=== PATIENT | female | born 1980 | race Caucasian/White ===

== ENCOUNTER 2019-12-12 22:02 | Observation (INO) | payer OTHER, SELFPAY ==
[2019-12-12 22:04] VITALS: BP 127/80; PULSE 91; RESP 18; TEMP 36.8; O2SAT 97; BMI 29.2
[2019-12-12 22:10] VITALS: BP 132/78; PULSE 74; RESP 16; O2SAT 97
--- NOTE | 2019-12-12 22:24 | ED_ITS ---
HPI - Abdominal Pain General: Chief Complaint: Abdominal Pain Stated Complaint: abd pain Time Seen by Provider: 12/12/19 22:13 History of Present Illness: MD elicited complaint: abdominal pain Pertinent past history: none Onset (ago): hour(s) Pain Consistency: constant Location: Periumbilical and RLQ Quality: aching and sharp Radiation: R flank Exacerbating factors: movement Relieving factors: nothing Associated Symptoms: Reports nausea; Denies diarrhea, dysuria, fever(s), hematuria and vomiting Review of Systems Const: Denies: fever Eyes: Denies: change in vision or blurry vision ENMT: Denies: painful swallowing, nose bleeds, post nasal drip or facial/sinus pain Card: Denies: chest pain, palpitations or irregular heart rhythm Resp: Denies: shortness of breath, productive cough, non-productive cough or wheezing GI: Reports: nausea; Denies: vomiting or diarrhea : Denies: painful urination or blood in urine Musc: Denies: neck pain, back pain, redness or joint warmth Skin/Breast: Denies: rash, itching or redness Neuro: Denies: headache, dizziness, vertigo or confusion Psych: Denies: anxiety PFSH ED PFSH: Social History Smoking and tobacco status: never smoked Physical Exam Const: GENERAL APPEARANCE: well developed ORIENTATION/CONSCIOUSNESS: Yes oriented to person, Yes oriented to place and Yes oriented to time HENMT: COMMON NORMALS: normocephalic, external ears normal and external nose normal HEAD & SCALP: normocephalic FACE & SINUS: normal facial exam NOSE: external nose normal and no nasal discharge EXTERNAL EAR: Yes external ears normal MOUTH: tongue normal Eye: COMMON NORMALS: PERRL, EOMs intact bilaterally and conjunctivae normal EYELID: eyelids normal CONJUNCTIVA: Yes conjunctivae normal PUPIL: Yes PERRL Neck/C-Spine: COMMON NORMALS: full ROM GENERAL: No tracheal deviation Chest: COMMONS NORMALS: inspection of chest normal CHEST: No tenderness Resp: COMMON NORMALS: clear to auscultation bilaterally EFFORT & INSPECTION: No tachypneic, No respiratory distress, No retractions, No uses accessory muscles and No tracheal deviation AUSCULTATION: clear to auscultation bilaterally, no rhonchi, no wheezes and lung sounds not diminished Cardio: COMMON NORMALS: regular rate and regular rhythm RATE: regular rate RHYTHM: regular rhythm HEART SOUNDS: no murmurs PERIPHERAL PULSES: radial pulses present GI: COMMON NORMALS: soft to palpation INSPECTION: No abdominal distension AUSCULTATION: No hyperactive bowel sounds and No hypoactive bowel sounds PALPATION: Yes soft, Yes tender Details: RLQ, No guarding and No rigid PERCUSSION: no dullness to percussion and no tympanic to percussion : BLADDER/KIDNEY EXAM: Yes CVA tenderness on the right Back/Pelvis: GENERAL BACK: Yes CVA tenderness Neuro: SENSORIUM/ORIENTATION: Yes oriented to person, Yes oriented to place and Yes oriented to time Psych: COMMON NORMALS: mental status grossly normal Skin: COMMON NORMALS: no rashes or lesions noted GENERAL SKIN EXAM: no rashes or lesions noted Course Vital Signs: Vital signs: Vital Signs Temperature 98.2 F 12/12/19 22:04 Pulse Rate 76 12/12/19 23:10 Respiratory Rate 16 12/12/19 23:10 Blood Pressure 124/72 12/12/19 23:10 Pulse Oximetry 99 12/12/19 23:10 MDM - Abdominal Pain MDM Narrative: Medical decision making narrative: Right lower quadrant pain in a patient with a white blood cell count of 13.2. CT scan shows early appendicitis without perforation. Spoke with surgery. Zosyn here and on the floor. Pain control. Antiemetics. Fluids. Surgery will see her later this morning. Lab Data: Labs: Lab Results 12/12/19 12/12/19 12/12/19 Range/Units 22:15 22:20 22:20 WBC 13.2 H (4.0-10.0) 10^3/ uL RBC 4.98 (4.1-5.3) 10^6/u L Hgb 15.6 H (11.5-15.3) g/dL Hct 45.7 (37.0-47.0) % MCV 91.8 (81-99) fL MCH 31.3 (28.0-34.0) pg MCHC 34.1 (30.0-36.0) g/dL RDW 12.4 (12.1-15.1) % Plt Count 282 (130-400) 10^3/c mm MPV 9.5 (7.4-10.4) fL Neut % (Auto) 85.6 % Lymph % (Auto) 9.2 % [place] % (Auto) 4.5 % Eos % (Auto) 0.2 % Baso % (Auto) 0.2 % Neut # (Auto) 11.3 H (1.8-7.7) 10^3/u L Lymph # (Auto) 1.2 (0.8-4.8) 10^3/u L [place] # (Auto) 0.6 (0.2-0.9) 10^3/u L Eos # (Auto) 0.0 (0.0-0.8) 10^3/u L Baso # (Auto) 0.0 (0.0-0.1) 10^3/u L Nucleated RBC % (a uto) 0 % Nucleated RBCs # 0.0 /100WBC Sodium 136 (136-145) mmol/L Potassium 3.6 (3.5-5.1) mmol/L Chloride 97 L (98-107) mmol/L Carbon Dioxide 23 (22-29) mmol/L Anion Gap 19.6 H (5-19) BUN 9 (6-20) mg/dL Creatinine 0.8 (0.5-0.9) mg/dL GFR Calculation 79.0 L (90-130) mL/min Glucose 108 (65-115) mg/dL Calculated Osmolal ity 279 L (285-295) mOsm/k g Calcium 10.1 (8.5-10.5) mg/dL Total Bilirubin 1.4 H (0.15-1.2) mg/dL AST 18 (0-32) U/L ALT 11 (0-33) U/L Alkaline Phosphata se 79 (35-105) IU/L C-Reactive Protein 0.9 (0.0-4.9) mg/L Total Protein 8.4 (6.6-8.7) g/dL Albumin 4.7 (3.5-5.2) g/dL Globulin 3.7 (1.3-4.6) g/dL Lipase 25 (13-60) U/L HCG, Qual (Negative) Urine Color Yellow (Yellow) Urine Appearance Clear (CLEAR) Urine pH 5 (5-7) Ur Specific Gravit y 1.020 (1.005-1.030) Urine Protein Neg (Negative) Urine Glucose (UA) Norm (Normal) Urine Ketones Negative (Negative) Urine Blood Neg (Negative) Urine Nitrate Negative (Negative) Urine Bilirubin Neg (NEGATIVE) Urine Urobilinogen Norm (Negative) mg/dL Ur Leukocyte Margot ase Negative (Negative) 12/12/19 Range/Units 22:20 WBC (4.0-10.0) 10^3/ uL RBC (4.1-5.3) 10^6/u L Hgb (11.5-15.3) g/dL Hct (37.0-47.0) % MCV (81-99) fL MCH (28.0-34.0) pg MCHC (30.0-36.0) g/dL RDW (12.1-15.1) % Plt Count (130-400) 10^3/c mm MPV (7.4-10.4) fL Neut % (Auto) % Lymph % (Auto) % [place] % (Auto) % Eos % (Auto) % Baso % (Auto) % Neut # (Auto) (1.8-7.7) 10^3/u L Lymph # (Auto) (0.8-4.8) 10^3/u L [place] # (Auto) (0.2-0.9) 10^3/u L Eos # (Auto) (0.0-0.8) 10^3/u L Baso # (Auto) (0.0-0.1) 10^3/u L Nucleated RBC % (a uto) % Nucleated RBCs # /100WBC Sodium (136-145) mmol/L Potassium (3.5-5.1) mmol/L Chloride (98-107) mmol/L Carbon Dioxide (22-29) mmol/L Anion Gap (5-19) BUN (6-20) mg/dL Creatinine (0.5-0.9) mg/dL GFR Calculation (90-130) mL/min Glucose (65-115) mg/dL Calculated Osmolal ity (285-295) mOsm/k g Calcium (8.5-10.5) mg/dL Total Bilirubin (0.15-1.2) mg/dL AST (0-32) U/L ALT (0-33) U/L Alkaline Phosphata se (35-105) IU/L C-Reactive Protein (0.0-4.9) mg/L Total Protein (6.6-8.7) g/dL Albumin (3.5-5.2) g/dL Globulin (1.3-4.6) g/dL Lipase (13-60) U/L HCG, Qual Negative (Negative) Urine Color (Yellow) Urine Appearance (CLEAR) Urine pH (5-7) Ur Specific Gravit y (1.005-1.030) Urine Protein (Negative) Urine Glucose (UA) (Normal) Urine Ketones (Negative) Urine Blood (Negative) Urine Nitrate (Negative) Urine Bilirubin (NEGATIVE) Urine Urobilinogen (Negative) mg/dL Ur Leukocyte Margot ase (Negative) Discharge Plan Discharge Prescriptions: No Action No Known Home Medications RF: 0 Coding Level of Care Code 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
[2019-12-12 22:32] LABS: Basophils % 0.2 %; Eosinophils % 0.2 %; Hematocrit 45.7 % (37.0-47.0); Hemoglobin 15.6 g/dL (11.5-15.3); Lymphocytes # 1.2 10^3/uL (0.8-4.8); Lymphocytes % 9.2 %; Mean Corpuscular HGB Conc 34.1 g/dL (30.0-36.0); Mean Corpuscular Hemoglobin 31.3 pg (28.0-34.0); Mean Corpuscular Volume 91.8 fL (81-99); Mean Platelet Volume 9.5 fL (7.4-10.4); Monocytes # 0.6 10^3/uL (0.2-0.9); Monocytes % 4.5 %; Neutrophils # 11.3 10^3/uL (1.8-7.7); Neutrophils % 85.6 %; Nucleated Red Blood Cells % 0 %; Platelet Count 282 10^3/cmm (130-400); Red Blood Count 4.98 10^6/uL (4.1-5.3); Red Cell Distribution Width 12.4 % (12.1-15.1); White Blood Count 13.2 10^3/uL (4.0-10.0)
--- NOTE | 2019-12-12 22:46 | CTR_ITS ---
PROCEDURE INFORMATION: Exam: CT Abdomen And Pelvis With Contrast Exam date and time: 12/12/2019 10:50 PM Age: 39 years old Clinical indication: Abdominal pain; Localized; Right lower quadrant (rlq); Patient HX: C/O rlq pain w nausea TECHNIQUE: Imaging protocol: Computed tomography of the abdomen and pelvis with intravenous contrast. Total DLP: 927.13 mGy-cm Radiation optimization: All CT scans at this facility use at least one of these dose optimization techniques: automated exposure control; mA and/or kV adjustment per patient size (includes targeted exams where dose is matched to clinical indication); or iterative reconstruction. Contrast material: OMNI 300; Contrast volume: 95 ml; Contrast route: 20G; COMPARISON: MRI Pelvis w/wo [id number] 04/08/2018 7:31 AM FINDINGS: Lungs: The lung bases are clear. Liver: There is fatty infiltration of the liver. Gallbladder and bile ducts: No definite gallbladder abnormality by CT. No biliary tree dilation. Pancreas: Unremarkable. Spleen: Unremarkable. Adrenals: Unremarkable. Kidneys and ureters: Possible 6 mm cyst in the lower right kidney, too small to accurately characterize by CT. No hydronephrosis of either kidney. No visible ureteral calculus. Stomach and bowel: There are no CT findings to strongly suggest diverticulitis. Appendix: The proximal appendix appears unremarkable. Possible small calcified appendicolith in the mid appendix. The distal aspect of the appendix is fluid-filled and mildly prominent in size, measuring up to 8-9 mm in diameter. There appears to be some appendiceal wall thickening/enhancement. Suspect very mild inflammatory changes in the periappendiceal fat. While the findings are not as prominent as often seen, I think this may well represent evidence for mild/early acute appendicitis. Clinical correlation is still recommended in this case. Intraperitoneal space: No free air, ascites, or bowel distention. Vasculature: No evidence for abdominal aortic aneurysm. Lymph nodes: No retroperitoneal adenopathy. Bladder: Suspect diffuse urinary bladder wall thickening. Evaluation is somewhat limited, as the bladder is almost empty. While nonspecific, this could indicate evidence for cystitis. Please correlate clinically. Reproductive: The right ovary contains a 20 mm dominant follicle versus small cyst. Significance uncertain due to small size. Small amount of cul-de-sac fluid. Bones/joints: Moderate degenerative disc changes at L5-S1. Soft tissues: No significant acute finding. CT/CT abdomen pelvis w con* [id number] IMPRESSION: 1. Findings suspicious for acute appendicitis, see above details/discussion. 2. No free air or bowel distention. 3. Suspected urinary bladder wall thickening, see above. 4. The right ovary contains a 20 mm dominant follicle versus small cyst. Significance uncertain due to small size. Small amount of cul-de-sac fluid. 5. Other findings discussed above. Radiation Dose CTDIVOL = (mGy): DLP = 927.13 (mGy-cm)
[2019-12-12 22:50] LABS: Alanine Aminotransferase 11 U/L (0-33); Albumin Level 4.7 g/dL (3.5-5.2); Alkaline Phosphatase 79 IU/L (35-105); Anion Gap 19.6 (5-19); Aspartate Amino Transferase 18 U/L (0-32); Blood Urea Nitrogen 9 mg/dL (6-20); C Reactive Protein 0.9 mg/L (0.0-4.9); Calcium 10.1 mg/dL (8.5-10.5); Carbon Dioxide 23 mmol/L (22-29); Chloride 97 mmol/L (98-107); Globulin 3.7 g/dL (1.3-4.6); Glucose 108 mg/dL (65-115); Lipase 25 U/L (13-60); Osmolality Calculated 279 mOsm/kg (285-295); Potassium 3.6 mmol/L (3.5-5.1); Sodium 136 mmol/L (136-145); Total Bilirubin 1.4 mg/dL (0.15-1.2); Total Protein 8.4 g/dL (6.6-8.7)
[2019-12-12 22:52] LABS: HCG, Serum Qual Negative (Negative)
[2019-12-12 22:54] LABS: Add Urine Microscopic? NO
[2019-12-12 22:56] LABS: Urine Appearance Clear (CLEAR); Urine Color Yellow (Yellow); pH Urine 5 (5-7)
[2019-12-12 22:57] LABS: Bilirubin Urine Neg (NEGATIVE); Blood Urine Neg (Negative); Glucose Urine UA Norm (Normal); Ketones Urine Negative (Negative); Leukocyte Esterase Urine Negative (Negative); Nitrate Urine Negative (Negative); Protein Urine Neg (Negative); Urobilinogen Urine Norm (Negative)
[2019-12-12] MEDS: iohexol 300 mg/mL 100 mL Btl IV (23:01)
[2019-12-12 23:10] VITALS: BP 124/72; PULSE 76; RESP 16; O2SAT 99
[2019-12-13] VITALS (26 sets, daily range): BP systolic 112–136; BP diastolic 69–87; PULSE 60–85; RESP 11–21; TEMP 36.5–37.1; O2SAT 95–100
[2019-12-13] MEDS: piperacillin-tazobactam 3.375 GM in sodium chloride 0.9% (plus) 50 ML IV ×2 (00:18→08:06)
[2019-12-13] MEDS: HYDROmorphone 1 mg/mL INJ 1 mL IVP (00:18)
[2019-12-13] MEDS: ondansetron 2 mg/ML SDV 2 mL 4 MG IVP (00:18)
[2019-12-13] MEDS: lactated ringers 1,000 ML 125 ML IV (01:07)
[2019-12-13] MEDS: morphine 4 mg/mL SDV 1 mL IVP ×3 (03:22→10:14)
[2019-12-13 05:59] LABS: Basophils % 0.3 %; Eosinophils % 0.4 %; Hematocrit 43.3 % (37.0-47.0); Hemoglobin 14.5 g/dL (11.5-15.3); Lymphocytes # 2.3 10^3/uL (0.8-4.8); Lymphocytes % 21.1 %; Mean Corpuscular HGB Conc 33.5 g/dL (30.0-36.0); Mean Corpuscular Hemoglobin 30.7 pg (28.0-34.0); Mean Corpuscular Volume 91.7 fL (81-99); Mean Platelet Volume 9.8 fL (7.4-10.4); Monocytes # 0.7 10^3/uL (0.2-0.9); Monocytes % 6.7 %; Neutrophils # 7.6 10^3/uL (1.8-7.7); Neutrophils % 71.2 %; Nucleated Red Blood Cells % 0 %; Platelet Count 245 10^3/cmm (130-400); Red Blood Count 4.72 10^6/uL (4.1-5.3); Red Cell Distribution Width 12.4 % (12.1-15.1); White Blood Count 10.6 10^3/uL (4.0-10.0)
[2019-12-13 06:17] LABS: Alanine Aminotransferase 10 U/L (0-33); Albumin Level 4.2 g/dL (3.5-5.2); Alkaline Phosphatase 74 IU/L (35-105); Anion Gap 15.8 (5-19); Aspartate Amino Transferase 15 U/L (0-32); Blood Urea Nitrogen 9 mg/dL (6-20); Calcium 9.4 mg/dL (8.5-10.5); Carbon Dioxide 26 mmol/L (22-29); Chloride 100 mmol/L (98-107); Glucose 101 mg/dL (65-115); Osmolality Calculated 282 mOsm/kg (285-295); Potassium 3.8 mmol/L (3.5-5.1); Sodium 138 mmol/L (136-145); Total Bilirubin 1.9 mg/dL (0.15-1.2); Total Protein 7.2 g/dL (6.6-8.7)
[2019-12-13] MEDS: sodium chloride 0.9% 1,000 ML 30 ML IV (07:43)
--- NOTE | 2019-12-13 07:44 | P.HP_ITS ---
Providers/Chief Complaint Admitting Physician: Bienvenido Tejeda MD Primary Care Provider: Raquel Huang MD Chief Complaint: abd pain History of Present Illness Willi Tinajero is a 39 year old female who woke up yesterday morning with complaints of abdominal pain mainly in the right lower quadrant and it progressively worsened during the course of the day. She had some nausea but no vomiting and therefore she presented to the ER. Patient states that she had 4 bowel movements yesterday and usually does not have any constipation. No fevers or chills. CT scan in the ER showed possible early appendicitis and her white count was 13. Review of Systems General: Reports: 10 or more systems reviewed and unremarkable except in HPI and below Medications/Allergies Home Medications Medication Instructions Recorded Confirmed Last Taken Type No Known Home Medications 12/12/19 12/12/19 Unknown History Allergies Allergy/AdvReac Type Severity Reaction Status Date / Time No Known Allergies Allergy Verified 12/12/19 22:09 PFSH Acute PFSH: Surgical History (Updated 12/13/19 @ 07:45 by Bienvenido Tejeda MD) H/O tubal ligation Social History Smoking and tobacco status: never smoked Vitals/I&O/Wt Last Vital Signs Temp 98.4 F 12/13/19 04:00 Pulse 81 12/13/19 04:00 Resp 14 12/13/19 05:43 BP 112/69 12/13/19 04:00 Pulse Ox 99 12/13/19 04:00 12/12/19 12/13/19 12/13/19 22:59 06:59 14:59 Intake Total 0 / 0 Balance 0 / 0 Weight last 48 hrs Weight 170 lb Physical Exam Narrative: EXAM NARRATIVE: HEENT: Normocephalic Eye: Sclera /conjunctiva normal Respiratory and chest: Bilateral clear breath sounds on auscultation Cardiovascular: Normal S1 and S2 heart sounds Abdomen: Soft to palpation, tender in the right lower quadrant Neurological: Oriented to place person and time Skin: Intact, no lesions appreciated on gross exam Data : 12/13/19 05:15 12/13/19 05:15 A&P Assessment and plan (1) Acute appendicitis: 39-year-old female with right lower quadrant pain nausea, leukocytosis and CT scan findings suggestive of early appendicitis Plan for laparoscopic possible open appendectomy Procedure, risks, benefits and alternatives have been discussed with the patient who wishes to proceed with surgery. 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
--- NOTE | 2019-12-13 07:50 | ANES.PREANE2 ---
Pre-Anesthetic Assessment Pre-Anesthetic Assessment: Height/Weight: Height 1.63 m Weight 77.111 kg Temp Pulse Resp BP Pulse Ox 98.4 F 81 14 112/69 99 12/13/19 04:00 12/13/19 04:00 12/13/19 05:43 12/13/19 04:00 12/13/19 04:00 Preop Diagnosis: aCute appendicitis Proposed Procedure: Operation Date: 12/13/19 08:20 Proposed Procedures p Laparoscopic Appendectomy Possible Open(Not Applicable) - Bienvenido Tejeda MD Familial anesthetic complications: No hx Was Beta Susana taken within 24 hours: N/A Last intake: Intake NPO since 1130 yesterday morning Last Solid Date 12/12/19 Social: Social History: No alcohol and No tobacco Exam: Pre-Anes Outpt Exam: alert, oriented x 3, clear to auscultation bilaterally and regular rate & rhythm Airway: Cervical ROM: WNL MP: 2 Dentition: Full Pulmonary: Pulmonary: None reported CV/HEM: CV/HEM: None reported : : None reported Hepatic: Hepatic: None reported GI: GI: None reported Metabolic: Metabolic: None reported Musc/skel: Musc/skel: None reported Neuropsych: Neuropsych: None reported Anesthetic Plan: ASA status: 1E Anesthesia: General Risk of > 500 ml blood loss (7ml/kg in children): No Meds/Allergies Current Medications: Current Medications Generic Name Dose Route Start Last Admin Trade Name Freq PRN Reason Stop Dose Admin Lactated Ringer's 1,000 mls @ 125 m ls/hr 12/13/19 00:40 12/13/19 01:07 Lactated Ringers IV 125 mls/hr .Q8H JACEY Administration Sodium Chloride 1,000 mls @ 30 ml s/hr 12/13/19 07:45 12/13/19 07:43 Sodium Chloride 0.9% IV 12/14/19 07:44 30 mls/hr .Q24H JACEY Administration Morphine Sulfate 4 mg 12/13/19 00:40 12/13/19 03:22 Morphine IVP 4 mg Q4H PRN Administration SEVERE PAIN PFSH Anesthesia PFSH: Surgical History (Updated 12/13/19 @ 07:45 by Bienvenido Tejeda MD) H/O tubal ligation Social History Smoking and tobacco status: never smoked Data Anesthesia CBC & Chem 7: 12/13/19 05:15 12/13/19 05:15 Other Labs: Laboratory Results - last 48 hr 12/12/19 12/12/19 12/12/19 22:15 22:20 22:20 WBC 13.2 H RBC 4.98 Hgb 15.6 H Hct 45.7 MCV 91.8 MCH 31.3 MCHC 34.1 RDW 12.4 Plt Count 282 MPV 9.5 Neut % (Auto) 85.6 Lymph % (Auto) 9.2 [place] % (Auto) 4.5 Eos % (Auto) 0.2 Baso % (Auto) 0.2 Neut # (Auto) 11.3 H Lymph # (Auto) 1.2 [place] # (Auto) 0.6 Eos # (Auto) 0.0 Baso # (Auto) 0.0 Nucleated RBC % (auto) 0 Nucleated RBCs # 0.0 Sodium 136 Potassium 3.6 Chloride 97 L Carbon Dioxide 23 Anion Gap 19.6 H BUN 9 Creatinine 0.8 GFR Calculation 79.0 L Glucose 108 Calculated Osmolality 279 L Calcium 10.1 Total Bilirubin 1.4 H AST 18 ALT 11 Alkaline Phosphatase 79 C-Reactive Protein 0.9 Total Protein 8.4 Albumin 4.7 Globulin 3.7 Lipase 25 HCG, Qual Urine Color Yellow Urine Appearance Clear Urine pH 5 Ur Specific [place] 1.020 Urine Protein Neg Urine Glucose (UA) Norm Urine Ketones Negative Urine Blood Neg Urine Nitrate Negative Urine Bilirubin Neg Urine Urobilinogen Norm Ur Leukocyte Esterase Negative 12/12/19 12/13/19 12/13/19 22:20 05:15 05:15 WBC 10.6 H RBC 4.72 Hgb 14.5 Hct 43.3 MCV 91.7 MCH 30.7 MCHC 33.5 RDW 12.4 Plt Count 245 MPV 9.8 Neut % (Auto) 71.2 Lymph % (Auto) 21.1 [place] % (Auto) 6.7 Eos % (Auto) 0.4 Baso % (Auto) 0.3 Neut # (Auto) 7.6 Lymph # (Auto) 2.3 [place] # (Auto) 0.7 Eos # (Auto) 0.0 Baso # (Auto) 0.0 Nucleated RBC % (auto) 0 Nucleated RBCs # 0.0 Sodium 138 Potassium 3.8 Chloride 100 Carbon Dioxide 26 Anion Gap 15.8 BUN 9 Creatinine 0.8 GFR Calculation 79.0 L Glucose 101 Calculated Osmolality 282 L Calcium 9.4 Total Bilirubin 1.9 H AST 15 ALT 10 Alkaline Phosphatase 74 C-Reactive Protein Total Protein 7.2 Albumin 4.2 Globulin 3.0 Lipase HCG, Qual Negative Urine Color Urine Appearance Urine pH Ur Specific [place] Urine Protein Urine Glucose (UA) Urine Ketones Urine Blood Urine Nitrate Urine Bilirubin Urine Urobilinogen Ur Leukocyte Esterase Cardiac Studies: No Data to Display
[2019-12-13] MEDS: fentaNYL 50 mcg/mL INJ 2mL IVP ×2 (09:01→09:06)
[2019-12-13] MEDS: HYDROmorphone 1 mg/mL INJ 1 mL 0.5 MG IVP ×2 (09:14→09:24)
--- NOTE | 2019-12-13 09:19 | SUR.PHASEI ---
0912 PT AWAKE ALERT ON RA TRIAL TAKING OCC ICE CHIPS PT GRIMICING RATES PAIN AT 9 DR HAMILTON AT BEDSIDE AND VERBALLY OK'D PT TO HAVE DILAUDED PER PROTOCOL FOR PAIN NOW INSTEAD OF MORPHINE . PT RESTING QUIETLY RATES PAIN AT 8 BETTER BUT STILL (BAD) SEE PAIN MEDS CONTINUED.
--- NOTE | 2019-12-13 09:38 | SUR.PHASEI ---
PT RESTING QUIETLY NOW, WITH GOOD RESP AWAKES EASILY , VSS ABD SOFT WITH NO BLEEDING NOTED , SCDS ON REPORT CALLED TO FLOOR.
--- NOTE | 2019-12-13 10:30 | SUR.PHASEI ---
0955 PT TO FLOOR WALKED TO BED ABD SOFT SITES X 3 D/I BP 134/84, HR 66, RESP 18,SATS ON RA 98%
--- NOTE | 2019-12-13 10:50 | PM.OP ---
Operative Report Date of procedure: December 13, 2019 Pre-op Diagnosis: acute appendicitis Post-op diagnosis: same Procedure Done: Laparoscopic appendectomy Specimens removed/disposition: Appendix Surgeon: Bienvenido Tejeda Anesthesia: General Estimated blood loss (mL): 10 Condition: stable Disposition: PACU Procedure: The patient was taken to the Operating Room and intubated under general anesthesia after antibiotic had been administered. Using a 15 blade, a 1-cm infraumbilical incision was made and using open Randa technique, the peritoneal cavity was entered. A 12mm port with balloon was placed and 14 mm of pneumoperitoneum was created and 10-mm 30 degree scope was introduced. Two separate 5mm ports were placed in the left and right lower quadrant under direct visualization. The appendix was noted in the right lower quadrant and appeared acutely inflamed with suppuration.. Using [place] forceps, an opening was made in the mesoappendix near the base of the appendix. An Endo RADHA stapler 45mm long 3.5mm blue load was introduced to divide the appendix at it's base. Using electrocautery, the mesoappendix including the appendicular artery was divided. There was no bleeding noted and the staple line appeared intact. The right lower quadrant was irrigated with saline and an EndoCatch bag was introduced to remove the appendix. All three ports were removed under direct visualization and there was no bleeding noted on the port sites. 10 cc of 0.5% Marcaine was infiltrated at the port sites. The fascia at the umbilical port was closed using figure of eight 0-Vicryl sutures and subcutaneous tissue was approximated using 3-0 Vicryl and skin at all 3 port sites was closed using 4-0 Monocryl and Dermabond.
[2019-12-13] MEDS: HYDROcodone-acetaminophen 5-325 mg Tablet 1 TAB PO (12:33)
--- NOTE | 2019-12-13 13:01 | P.DS_ITS ---
Discharge Providers Date of Admission: 12/12/19 23:58 Date of Discharge: December 13, 2019 Attending Provider at Admission: Bienvenido Tejeda MD Attending Provider at Discharge: Bienvenido Tejeda MD Primary Care Provider: Raquel Huang MD Diagnoses at Discharge Discharge Diagnosis (1) Acute appendicitis: Status: Resolved Reason for Visit Reason for Visit: Reason For Visit: abd pain Hospital Course Hospital Course: The patient was admitted to the hospital after he presented to the ER with complaints of right lower quadrant pain associated nausea. Patient was admitted to the hospital overnight and underwent laparoscopic appendectomy. At time of discharge her vital signs are stable she is tolerating a liquid diet and her pain was well controlled. Discharge Data Data Completed and Pending: Completed Studies During Hospitalization Category Date Time Status CT abdomen pelvis w con* [id number] Urge nt Cat Scan 12/12/19 22:46 Completed Pending at discharge Category Date Time Status ES surgery / GI i mages Routine Exams 12/13/19 07:57 Ordered Pathology: Surgic al [PTH] Routine Pth 12/13/19 08:49 Ordered Labs from last 24 hours 12/13/19 12/13/19 12/12/19 05:15 05:15 22:20 WBC 10.6 H RBC 4.72 Hgb 14.5 Hct 43.3 MCV 91.7 MCH 30.7 MCHC 33.5 RDW 12.4 Plt Count 245 MPV 9.8 Neut % (Auto) 71.2 Lymph % (Auto) 21.1 [place] % (Auto) 6.7 Eos % (Auto) 0.4 Baso % (Auto) 0.3 Neut # (Auto) 7.6 Lymph # (Auto) 2.3 [place] # (Auto) 0.7 Eos # (Auto) 0.0 Baso # (Auto) 0.0 Nucleated RBC % (a uto) 0 Nucleated RBCs # 0.0 Sodium 138 Potassium 3.8 Chloride 100 Carbon Dioxide 26 Anion Gap 15.8 BUN 9 Creatinine 0.8 GFR Calculation 79.0 L Glucose 101 Calculated Osmolal ity 282 L Calcium 9.4 Total Bilirubin 1.9 H AST 15 ALT 10 Alkaline Phosphata se 74 C-Reactive Protein Total Protein 7.2 Albumin 4.2 Globulin 3.0 Lipase HCG, Qual Negative Urine Color Urine Appearance Urine pH Ur Specific Gravit y Urine Protein Urine Glucose (UA) Urine Ketones Urine Blood Urine Nitrate Urine Bilirubin Urine Urobilinogen Ur Leukocyte Margot ase 12/12/19 12/12/19 12/12/19 22:20 22:20 22:15 WBC 13.2 H RBC 4.98 Hgb 15.6 H Hct 45.7 MCV 91.8 MCH 31.3 MCHC 34.1 RDW 12.4 Plt Count 282 MPV 9.5 Neut % (Auto) 85.6 Lymph % (Auto) 9.2 [place] % (Auto) 4.5 Eos % (Auto) 0.2 Baso % (Auto) 0.2 Neut # (Auto) 11.3 H Lymph # (Auto) 1.2 [place] # (Auto) 0.6 Eos # (Auto) 0.0 Baso # (Auto) 0.0 Nucleated RBC % (a uto) 0 Nucleated RBCs # 0.0 Sodium 136 Potassium 3.6 Chloride 97 L Carbon Dioxide 23 Anion Gap 19.6 H BUN 9 Creatinine 0.8 GFR Calculation 79.0 L Glucose 108 Calculated Osmolal ity 279 L Calcium 10.1 Total Bilirubin 1.4 H AST 18 ALT 11 Alkaline Phosphata se 79 C-Reactive Protein 0.9 Total Protein 8.4 Albumin 4.7 Globulin 3.7 Lipase 25 HCG, Qual Urine Color Yellow Urine Appearance Clear Urine pH 5 Ur Specific [place] 1.020 Urine Protein Neg Urine Glucose (UA) Norm Urine Ketones Negative Urine Blood Neg Urine Nitrate Negative Urine Bilirubin Neg Urine Urobilinogen Norm Ur Leukocyte Margot ase Negative Vitals: Last Vital Signs Temp 98.2 F 12/13/19 10:55 Pulse 72 12/13/19 11:55 Resp 18 12/13/19 11:55 BP 132/72 12/13/19 11:55 Pulse Ox 99 12/13/19 11:55 Discharge Plan Discharge Patient Disposition: Home, Self-Care Condition: Stable Prescriptions: [place] 5-325 mg tablet 1 tab PO Q6H 7 Days Qty: 20 RF: 0 docusate sodium [Colace] 100 mg capsule 100 mg PO BID Qty: 30 RF: 0 No Action No Known Home Medications RF: 0 Discharge Orders: Discharge Order (Routine); Ordered 12/13/19 Ordered By: Bienvenido Tejeda Referrals: Bienvenido Tejeda MD [Physician] - 7-10 days Activity Restrictions/Additional Instructions: 1. Up and walking as tolerated. 2. Ok to shower in 48 hours after surgery. 3. Remove Dermabond dressing in 7-10 days. 4. Do not lift more than 10 pounds. 5. Do not operate heavy machinery or drive while using pain medications. 6. Advised to return to ER or contact my office if there are any signs of infection like, increasing pain, fevers, chills, redness or drainage of pus. 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
== END 2019-12-13 15:00 | disposition home or self-care (01) ==
LOC: ER 22:23 → MEDSURG 12-13 00:18
PROVIDERS: Admitting Provider Surgery; Emergency Provider Emergency Medicine; Family Provider Family Medicine; PCP Family Medicine; Visit Provider Surgery
PROC: 0DTJ4ZZ Resection of Appendix, Percutaneous Endoscopic Approach (ICD-10-PCS; CPT 44970; principal; 2019-12-13 08:00)
DX: K35.80 Unspecified acute appendicitis (principal)
CPT/HCPCS: 44970; 12345; 36415; 74177; 80053; 81003; 83690; 84703; 85025; 86140; 88304; 96360; 96361; 96365; 96375; 99282; 99285; G0378; J1170; J2001; J2270; J2405; J2543; J2704; J2710; J3010; J3490; J7030; Q9967

== ENCOUNTER 2020-03-09 12:35 | Outpatient (CLI) | payer OTHER, SELFPAY ==
--- NOTE | 2020-03-09 13:07 | MM_ITS ---
WS: [id number] SCREENING DIGITAL MAMMOGRAM WITH CAD HISTORY: SCREENING COMPARISON: 02/12/2019, 12/03/2018, 01/20/2018 and 06/12/2012 Bilateral CC and MLO views submitted. Computer aided detection analyzed. Breast composition: The breasts are extremely dense, which lowers the sensitivity of mammography. No suspicious masses, microcalcifications or architectural distortion. Breast parenchyma is stable. No i nterval change since 2018. MM/[id number] IMPRESSION: BI-RADS: 2-Benign FOLLOW UP: 1 Year Follow-up
== END 2020-03-09 12:36 | disposition home or self-care (01) ==
LOC: RADSHAW 12:38
PROVIDERS: PCP Family Medicine; Visit Provider Family Medicine
DX: Z12.31 Encounter for screening mammogram for malignant neoplasm of breast (principal)
CPT/HCPCS: 77067

== ENCOUNTER 2021-04-13 09:34 | Outpatient (CLI) | payer OTHER, SELFPAY ==
--- NOTE | 2021-04-13 09:55 | MM_ITS ---
WS: [id number] BILATERAL SCREENING DIGITAL MAMMOGRAM WITH CAD HISTORY: SCREENING COMPARISON: 03/09/2020 and 02/12/2019 and 12/03/2018 Bilateral CC and MLO views submitted. Computer aided detection analyzed. Breast composition: The breasts are extremely dense, which lowers the sensitivity of mammography. No suspicious masses, microcalcifications or architectural distortion. MM/[id number] IMPRESSION: BI-RADS: 1-Negative FOLLOW UP: 1 Year Follow-up
== END 2021-04-13 09:35 | disposition home or self-care (01) ==
LOC: RADSHAW 09:39
PROVIDERS: PCP Family Medicine; Visit Provider Family Medicine
DX: Z12.31 Encounter for screening mammogram for malignant neoplasm of breast (principal)
CPT/HCPCS: 77067

== ENCOUNTER → 2022-01-03 09:38 | Outpatient (BNVA) | payer OTHER, SELFPAY | PROVIDERS: PCP Family Medicine; Visit Provider Emergency Medicine | DX: M25.572 Pain in left ankle and joints of left foot (principal) | CPT/HCPCS: 73610 ==

== ENCOUNTER → 2022-02-12 11:08 | Outpatient (BNVA) | payer OTHER, SELFPAY | PROVIDERS: PCP Family Medicine; Visit Provider Emergency Medicine | DX: J02.9 Acute pharyngitis, unspecified (principal) | CPT/HCPCS: 87071; 87880 ==

== ENCOUNTER 2022-04-19 13:33 | Outpatient (CLI) | payer OTHER, SELFPAY ==
--- NOTE | 2022-04-19 13:41 | MM_ITS ---
WS: [id number] SCREENING DIGITAL BREAST TOMOSYNTHESIS MAMMOGRAM WITH CAD HISTORY: SCREENING COMPARISON: 04/13/2021, 03/09/2020 and 02/12/2019 Bilateral CC and MLO with tomosynthesis and synthetic mammography submitted. Computer aided detection analyzed. Breast composition: The breasts are extremely dense, which lowers the sensitivity of mammography. . D ense breast tissue bilaterally. Increasing size of a partially obscured mass in the upper outer quadr ant of the LEFT breast near 1-2 o'clock. Mass measures 3.4 x 3.0 cm. Cysts have been previously descr ibed in this location on prior examinations. Due to the increase in size ultrasound recommended to ch aracterize whether this is cystic or solid mass. The remaining breasts are stable. MM/[place] [id number] IMPRESSION: BI-RADS: 0-Incomplete: Need additional imaging evaluation FOLLOW UP: Need Additional Imaging LEFT breast ultrasound recommended upper outer quadrant.
== END 2022-04-19 13:34 | disposition home or self-care (01) ==
PROVIDERS: PCP Family Medicine; Visit Provider Nurse Practitioner Family
DX: Z12.31 Encounter for screening mammogram for malignant neoplasm of breast (principal)
CPT/HCPCS: 77063; 77067

== ENCOUNTER 2022-09-21 08:44 | Outpatient (CLI) | payer BC, SELFPAY ==
--- NOTE | 2022-09-21 08:54 | US_ITS ---
WS: [id number] ULTRASOUND LEFT BREAST HISTORY: ABNORMAL MAMMO COMPARISON: Mammogram 04/19/2022. Prior breast ultrasound 06/05/2019 and 12/03/2018. TECHNIQUE: 2-D and Doppler. Multiple cysts upper outer quadrant of the LEFT breast. The most concerning cyst is a complex cyst wi th lobulated soft tissue at 2:00, 2 cm from the nipple. The entire cyst with nodule measures 2.1 x 2. 7 x 1.6 cm. The lobulated soft tissue component measures 1.2 x 1.0 x 1.3 cm. There may be mild invasi on into the wall of the cyst. This was not mobile during change in position of the patient. This comp yi cyst was not present on prior studies. US/US breast LT limited* [id number] IMPRESSION: BI-RADS: 4-Suspicious Finding-Biopsy Should Be Considered FOLLOW-UP: Biopsy Recommended Ultrasound-guided biopsy recommended of a solid lobulated component associated with the cyst upper outer quadrant LEFT breast, 2:00. Notified Rauqel Huang MD at 09/21/2022 10:32 AM.
== END 2022-09-21 08:45 | disposition home or self-care (01) ==
PROVIDERS: PCP Family Medicine; Visit Provider Family Medicine
DX: R92.8 Other abnormal and inconclusive findings on diagnostic imaging of breast (principal); N60.02 Solitary cyst of left breast
CPT/HCPCS: 76642

== ENCOUNTER 2022-10-11 12:17 | Outpatient (CLI) | payer BC, SELFPAY ==
--- NOTE | 2022-10-11 12:24 | US_ITS ---
WS: [id number] ULTRASOUND-GUIDED LEFT BREAST BIOPSY HISTORY: UNSPECIFIED LUMP IN LEFT BREAST COMPARISON: 09/21/2022, 06/05/2019 Procedure, risks and complications are explained to the patient. Medications are reviewed. Consent is obtained. The mass in the LEFT breast is localized with ultrasound. Complex cystic mass. There is debris which does demonstrate mobility on today's exam. Skin is cleansed with ChloraPrep and anesthetized with 1% buffered lidocaine. Small dermatome is made. Under sterile conditions mass is biopsied with a 14-gaug e Achieve needle. Multiple core biopsies are performed. Material placed in formalin and sent to patho logy for review. No complications encountered. Breast tissue marker (Bard ultrasound enhanced ribbon): Single. Patient left the radiology suite with no complications. Patient is instructed to return to [facility] or [facility] with any concerns. US/[place] [id number] IMPRESSION: 1. Uncomplicated core needle biopsy LEFT breast complex cystic mass at 2:00. PATHOLOGY: Benign breast tissue with fibrocystic and: Are subtle changes. Focus of debris with granulation tissue. No malignancy. RECOMMENDATION: Return to yearly mammography.
== END 2022-10-11 12:18 | disposition home or self-care (01) ==
LOC: RAD 12:17
PROVIDERS: PCP Family Medicine; Visit Provider Family Medicine
DX: N63.21 Unspecified lump in the left breast, upper outer quadrant (principal); N60.12 Diffuse cystic mastopathy of left breast
CPT/HCPCS: 19083; 88305

== ENCOUNTER 2025-01-11 12:31 | Outpatient (CLI) | payer BC, SELFPAY ==
--- NOTE | 2025-01-11 12:35 | MM_ITS ---
WS: [id number] BILATERAL 3D TOMOSYNTHESIS DIGITAL SCREENING MAMMOGRAM WITH CAD CLINICAL INFORMATION: SCREENING HISTORY: Screening mammogram. No current complaints. COMPARISON: 2021 TECHNIQUE: Bilateral CC and MLO. FINDINGS: The breast are composed of extremely dense tissue, which can limit the detection of small underlying mass lesions. No suspicious focal mass, asymmetry, calcifications, or architectural distortion. No evidence of malignancy. Incidental punctate calcifications. Biopsy marker LEFT breast. MM/MM [facility] tomosynthesis [id number] IMPRESSION: DENSITY: The breasts are extremely dense, which lowers the sensitivity of mammo graphy. BI-RADS: 2 - Benign FOLLOW UP: 1 Year Follow-up Recommend return to annual screening mammography.
== END 2025-01-11 12:32 | disposition home or self-care (01) ==
PROVIDERS: Visit Provider Family Medicine
DX: Z12.31 Encounter for screening mammogram for malignant neoplasm of breast (principal); R92.343 Mammographic extreme density, bilateral breasts; R92.1 Mammographic calcification found on diagnostic imaging of breast
CPT/HCPCS: 77063; 77067

== ENCOUNTER 2025-03-11 13:31 | Outpatient (CLI) | payer BC, SELFPAY ==
--- NOTE | 2025-03-11 13:43 | US_ITS ---
WS: [id number] ULTRASOUND LEFT BREAST HISTORY: MASTITIS W/O ABSCESS/FAMILY HX OF BREAST CA/MASTODYNIA COMPARISON: 09/21/2022, mammogram 01/11/2025 and 04/19/2022 TECHNIQUE: 2-D and Doppler. There is extensive edema and increased vascularity throughout the LEFT breast. Most significant in the retroareolar region and extending lateral. There are numerous cysts which have been previously described. There is skin thickening with minimal increased vascularity. There is no dominant mass. Under recent mammogram seen only on the LEFT MLO projection there is a spiculated mass in the retromammary fat against the chest wall. This is only seen on the lateral projection. During the ultrasound this area was imaged without identifying mass or distortion. Ultrasound is limited due to the acute c hanges within the breast. US/US breast LT limited* [id number] IMPRESSION: BI-RADS: 0 - Incomplete: Need additional imaging evaluation FOLLOW-UP: Need Additional Imaging 1. Extensive edema and increased vascularity throughout the LEFT breast. Masti tis versus inflammatory breast cancer. After a short round of antibiotics if th e inflammatory changes do not resolve inflammatory breast cancer should be cons idered and biopsy performed. 2. Seen only on one image is a slightly spiculated mass in the posterior LEFT breast on the mammogram of 01/11/2025. This may be superimposed normal fibrogland ular tissue. Unsuccessful attempt at localizing any abnormality against the pos terior chest wall by ultrasound on today's exam. This needs to be further evalu ated as patient's acute breast changes resolved. 3. Recommend MRI breast at this time to evaluate for inflammatory breast cance r or carcinoma and to evaluate for a possible small spiculated mass in the post erior LEFT breast against the chest wall. Mass is not visualized by ultrasound. MRI necessary due to patient's strong family history and extremely dense breas t tissue with new acute findings which may be mastitis or inflammatory breast c ancmarcella. Notified SEB Sanabria at 03/11/2025 3:00 PM.
== END 2025-03-11 13:32 | disposition home or self-care (01) ==
PROVIDERS: PCP Nurse Practitioner Family; Visit Provider Nurse Practitioner Family
DX: N61.0 Mastitis without abscess (principal); Z80.3 Family history of malignant neoplasm of breast; N64.4 Mastodynia; R60.0 Localized edema; R92.8 Other abnormal and inconclusive findings on diagnostic imaging of breast; N60.12 Diffuse cystic mastopathy of left breast; R23.4 Changes in skin texture
CPT/HCPCS: 76642